=== PATIENT | female | born 1995 | race Caucasian/White ===

== ENCOUNTER 2023-03-01 11:19 | Outpatient (CLI) | payer OTHER ==
[~2023-03-01] VITALS: Ht 162.6 cm; Wt 107.3 kg
[2023-03-01 11:40] VITALS: BP 120/72
[2023-03-01] MEDS ORDERED: GNP250TA9 PO (12:11)
[2023-03-01] MEDS ORDERED: TUMS500C PO (12:11)
[2023-03-01] MEDS ORDERED: VITAD400CA FT (12:11)
[2023-03-01] MEDS ORDERED: PRENTAB9 PO ×2 (12:11)
[2023-03-01] MEDS ORDERED: ASPI81CH33 PO (12:11)
[2023-03-01] MEDS ORDERED: HOME MED LIST COMPLETE! XX SCH (12:15)
== END 2023-03-01 12:12 | disposition home or self-care (01) ==
LOC: M LDO 11:19
PROVIDERS: ATTEND Obstetrics & Gynecology
DX: O26.893 Other specified pregnancy related conditions, third trimester (principal); N89.8 Other specified noninflammatory disorders of vagina; O99.353 Diseases of the nervous system complicating pregnancy, third trimester; G43.909 Migraine, unspecified, not intractable, without status migrainosus; O99.513 Diseases of the respiratory system complicating pregnancy, third trimester; J45.909 Unspecified asthma, uncomplicated; O99.343 Other mental disorders complicating pregnancy, third trimester; F32.A Depression, unspecified; Z88.5 Allergy status to narcotic agent; Z3A.39 39 weeks gestation of pregnancy
CPT/HCPCS: 59025; G0463

== ENCOUNTER 2023-03-02 04:21 | Inpatient (IN) | payer OTHER ==
[2023-03-02] VITALS (7 sets, daily range): BP systolic 116–161; BP diastolic 66–86
[~2023-03-02] VITALS: Ht 160 cm; Wt 108.0 kg
[~2023-03-02 04:21] MED LIST: ASPI81CH33 PO; GNP250TA9 PO; PRENTAB9 PO; TUMS500C PO; VITAD400CA FT
[2023-03-02] MEDS ORDERED: OXYTOCIN 30UNITS IN 0.9% NaCl 500ML IV BAG As Ordered ONE (04:31)
[2023-03-02 04:50] LABS: HEMATOCRIT 39.3 % (36.0-47.0); HEMOGLOBIN 13.5 g/dl (12.0-15.5); MEAN CORPUSCULAR HEMOGLOBIN 30.2 pg (27.0-33.0); MEAN CORPUSCULAR HGB CONC 34.4 g/dl (32.0-36.5); MEAN CORPUSCULAR VOLUME 87.9 fl (80.0-96.0); PLATELET COUNT, AUTOMATED 234 10^3/uL (150-450); RED BLOOD COUNT 4.47 10^6/uL (4.00-5.40); WHITE BLOOD COUNT 11.6 10^3/uL (4.0-10.0)
[2023-03-02] MEDS ORDERED: LACTATED RINGER'S 1000 ML IV STA (05:03)
[2023-03-02] MEDS ORDERED: TRANEXAMIC ACID INJection 1,000 MG in NS 100 ML IV PRN (05:05)
[2023-03-02] MEDS ORDERED: CARBOPROST TROMETHAMINE 250 MCG/ML AMP IM PRN (05:05)
[2023-03-02] MEDS ORDERED: METHYLERGONOVINE MALEATE 0.2MG/ML 1ML VIAL IM PRN (05:05)
[2023-03-02] MEDS ORDERED: OXYTOCIN INJ 10UNITS/ML 1ML VIAL IM PRN (05:05)
[2023-03-02] MEDS ORDERED: LIDOCAINE 1% MDV 20ML VIAL INFIL PRN (05:05)
[2023-03-02] MEDS ORDERED: OXYTOCIN DRIP 30 UNITS in IV 1 EA IV PRN ×4 (05:05)
[2023-03-02] MEDS ORDERED: RHOGAM 300MCG (1500IU) INJ IM SCH (05:25)
[2023-03-02] MEDS ORDERED: ACETAMINOPHEN TAB 650MG DOSE (2X325MG) PO PRN (05:25)
[2023-03-02] MEDS ORDERED: ACETAMINOPHEN 500 MG TAB PO PRN (05:25)
[2023-03-02] MEDS ORDERED: IBUPROFEN 800 MG TAB PO PRN (05:25)
[2023-03-02] MEDS ORDERED: ONDANSETRON 4MG 2ML VIAL IV PRN (05:25)
[2023-03-02] MEDS ORDERED: OXYTOCIN DRIP 30 UNITS in IV 1 EA IV SCH (05:25)
[2023-03-02] MEDS ORDERED: METHYLERGONOVINE MALEATE 0.2 MG TAB PO PRN (05:25)
[2023-03-02] MEDS ORDERED: DOCUSATE SODIUM 100MG CAPSULE PO PRN (05:25)
[2023-03-02] MEDS ORDERED: DIBUCAINE 1% OINTMENT 30GM TOP PRN (05:25)
[2023-03-02] MEDS: IBUPROFEN 600MG TAB PO PRN ×3 (07:24→23:19)
[2023-03-02] MEDS: PRENATAL VITAMINS CHEWABLE TABLET PO SCH (07:24)
[2023-03-03 05:59] VITALS: BP 138/70
[2023-03-03] MEDS: IBUPROFEN 600MG TAB PO PRN (06:05)
[2023-03-03] MEDS: PRENATAL VITAMINS CHEWABLE TABLET PO SCH (07:50)
[2023-03-04] MEDS ORDERED: MEASLES,MUMPS,RUBELLA VACCINE INJ (MMR-II) SC.IMMUN ONE (09:00)
== END 2023-03-03 15:10 | disposition home or self-care (01) | DRG 807 ==
LOC: M LDO 04:21 → M LDI 04:25 → M OBS 06:23
PROVIDERS: ADMIT Obstetrics & Gynecology; ATTEND Obstetrics & Gynecology
PROC: 10E0XZZ Delivery of Products of Conception, External Approach (ICD-10-PCS; principal; 2023-03-02)
DX: O69.82X0 Labor and delivery complicated by other cord entanglement, without compression, not applicable or unspecified (principal); Z37.0 Single live birth; Z88.5 Allergy status to narcotic agent; Z79.82 Long term (current) use of aspirin; Z3A.39 39 weeks gestation of pregnancy